=== PATIENT | male | born 1990 | race Caucasian/White ===

== ENCOUNTER 2017-06-10 03:30 | Inpatient (IN) | payer MEDICAID ==
[~2017-06-10] VITALS: Ht 160 cm; Wt 58.3 kg
[2017-06-10 04:54] LABS: BASOPHIL % 0.6 % (0-2); PLATELET COUNT 278 x10^3mcL (130-400)
[2017-06-10 05:11] LABS: CALCIUM 8.4 mg/dL (8.5-10.1); CARBON DIOXIDE 23.5 mmol/L (21-32); CREATININE SERUM 1.7 mg/dL (0.7-1.3); POTASSIUM SERUM 4.4 mmol/L (3.5-5.1)
[2017-06-10 05:34] LABS: BILIRUBIN TOTAL 0.29 mg/dL (0.20-1.00); CK-MB 2.1 ng/mL (0-3.6); TOTAL PROTEIN, SERUM 7.2 g/dL (6.4-8.2)
[2017-06-10 05:35] LABS: ALBUMIN 3.3 g/dL (3.4-5.0)
[2017-06-10 06:39] VITALS: BP 136/72
[2017-06-10 07:40] VITALS: BP 136/72
[2017-06-10 07:45] LABS: CHOLESTEROL/HDL RATIO 3.1; MAGNESIUM 1.8 mg/dL (1.8-2.4); PHOSPHOROUS 4.6 mg/dL (2.5-4.9)
[2017-06-10 07:56] LABS: FREE T4 0.82 ng/dL (0.76-1.46)
[2017-06-10 08:00] LABS: FREE THYROXINE INDEX 1.3 ug/dL (1.4-4.5); T4(THYROXINE) 3.4 ug/dL (4.7-13.3)
[2017-06-10 08:12] LABS: UA SPECIFIC GRAVITY 1.025 (1.005-1.035); microscopic required? YES; urine erythrocyte 1+ (NEGATIVE)
[2017-06-10 08:25] LABS: AMPHETAMINE QUAL UR POSITIVE (NEG <=1000)
[2017-06-10 08:35] LABS: T3 TOTAL 0.57 ng/mL
[2017-06-10 10:53] VITALS: BP 136/68
[2017-06-10 15:07] VITALS: BP 139/66
[2017-06-10 21:02] VITALS: BP 114/68
[2017-06-11 05:21] VITALS: BP 109/61
== END 2017-06-11 09:45 | disposition left against medical advice (07) | DRG 133 ==
LOC: ED 03:30 → DU 05:39
PROVIDERS: Emergency Medicine; ADMIT Family Medicine Sports Medicine
DX: J96.90 Respiratory failure, unspecified, unspecified whether with hypoxia or hypercapnia (principal); N17.0 Acute kidney failure with tubular necrosis; G92 Toxic encephalopathy; E87.2 Acidosis; E11.59 Type 2 diabetes mellitus with other circulatory complications; D68.69 Other thrombophilia; N18.3 Chronic kidney disease, stage 3 (moderate); R31.29 Other microscopic hematuria; T43.621A Poisoning by amphetamines, accidental (unintentional), initial encounter; E11.65 Type 2 diabetes mellitus with hyperglycemia; R74.0 Nonspecific elevation of levels of transaminase and lactic acid dehydrogenase [LDH]; D64.9 Anemia, unspecified; E03.9 Hypothyroidism, unspecified; Z22.322 Carrier or suspected carrier of Methicillin resistant Staphylococcus aureus; Z53.29 Procedure and treatment not carried out because of patient's decision for other reasons; Y92.009 Unspecified place in unspecified non-institutional (private) residence as the place of occurrence of the external cause
CPT/HCPCS: 36600; 82962; 83880; 84439; J2270; J7030; Q0092